=== PATIENT | female | born 1935 | race African-American/Black ===

== ENCOUNTER 2022-09-19 17:17 | Emergency (ER) | payer OTHER ==
[~2022-09-19] VITALS: Ht 160 cm; Wt 68.0 kg
[2022-09-19] MEDS ORDERED: IOHEXOL-350 100 ML BOTTLE ONE (18:09)
[2022-09-19 18:24] LABS: BASOPHILS % 0.7 % (0.0-2.0); EOSINOPHILS % 0.8 % (0.0-5.0); HEMOGLOBIN. 12.7 g/dL (12.0-16.0); LYMPHOCYTES % 23.4 % (20.0-50.0); MEAN CORPUSCULAR HEMOGLOBIN 29.6 pg (28.0-32.0); MEAN CORPUSCULAR VOLUME 90.7 fL (81.0-99.0); MONOCYTES % 10.5 % (2.0-8.0); NEUTROPHILS % 64.6 % (40.0-76.0); PLATELET 154 x1000/uL (130-400); RED BLOOD CELL COUNT 4.29 mill/uL (4.2-5.4); RED CELL DISTRIBUTION WIDTH 13.8 % (11.6-14.6)
[2022-09-19 18:33] LABS: CHLORIDE 106 mEq/L (98-107)
[2022-09-19 18:43] LABS: ETHANOL BLOOD < 10 mg/dL
[2022-09-19 18:45] LABS: INR 1.1
[2022-09-19 20:25] VITALS: BP 117/83
== END 2022-09-19 22:28 | disposition short-term general hospital (02) ==
LOC: ER 17:17 → CANBEDREQ 09-20 10:53
DX: G45.9 Transient cerebral ischemic attack, unspecified (principal); R56.9 Unspecified convulsions
CPT/HCPCS: 36415; 70450; 70496; 70498; 71045; 72170; 80053; 80320; 84484; 85025; 85610; 86850; 86900; 86901; 93005; 99291; Q9967; G0480